=== PATIENT | female | born 1955 | race African-American/Black ===

== ENCOUNTER 2018-07-12 20:22 | Emergency (ER) | payer OTHER ==
[2018-07-12 20:28] VITALS: TEMP 97.5; BMI 30.9
--- NOTE | 2018-07-12 20:28 | PDOC ---
Rapid Medical Evaluation Time Seen by Provider: 07/12/18 20:25 Medical Evaluation: 07/12/18 20:25 Pt presents to the ED for evaluation of headache x3 days. Pt states she took Tylenol this morning for the pain, but it didn't help. Exam: no gross neuro deficits. O2 sat 85% ORA. Pt uses O2 at home Orders: labs, IV insert Pt to proceed to the ED for evaluation Discharge Disposition - Diagnosis Headache Qualifiers: Headache type: unspecified - Referrals - Patient Instructions - Post Discharge Activity
--- NOTE | 2018-07-12 21:27 | PDOC ---
Attending Attestation - HPI HPI: 07/12/18 21:40 Patient is a 63 year old female with a significant past medical history of Shortness of breath (On home O2) who presents to the ED with complaints of head pain that began x3 days ago. Patient reports experiencing right sided head pain that she states gets better with one dose of tylenol but does not completely subside. She reports taking last does this morning at 9 am, prompting her to come into the ED for further evaluation when pain did not fully subside. Denies chest pain, Sob. Denies nausea, vomiting. Denies fevers, chills. Denies dysuria, hematuria. Denies constipation, diarrhea. Denies contact with sick individuals, out of state travelling. Denies any other symptoms. Allergies: NKDA Social history: No smoking. No alcohol. No illicit drugs. Surgical history: None PMD: Dr. Hernandez - Physicial Exam PE: 07/12/18 21:40 Agree with residents Physical Exam. <Gino Toledo - Last Filed: 07/12/18 21:40> - Resident Resident Name: Yvan You - ED Attending Attestation I have performed the following: I have examined & evaluated the patient, The case was reviewed & discussed with the resident, I agree w/resident's findings & plan - Medical Decision Making 07/13/18 02:10 63-year-old female with intermittent headache for 3 days with partial resolution after taking Tylenol CT scan of the brain shows no acute abnormality Patient is pain free after Tylenol and Reglan here Patient will be discharged home to follow up with neurology <Priscila Nick - Last Filed: 07/13/18 02:11>
[2018-07-12] MEDS ORDERED: ACETAMINOPHEN 1000 MG/100 ML VIAL (NON FORMULARY) IVPB ONE (21:34)
[2018-07-12] MEDS ORDERED: METOCLOPRAMIDE HCL INJECTION 10 MG/2 ML VIAL IVPUSH ONE (21:35)
[2018-07-12] MEDS ORDERED: ACETAMINOPHEN INJECTION 100 ML IVPB ONE (21:57)
[2018-07-12] MEDS ORDERED: METOCLOPRAMIDE HCL INJECTION 10 MG/2 ML VIAL ONE (21:57)
[2018-07-12 21:58] LABS: BASO % 0.8 % (0-2.0); EOS % 1.1 % (0-4.5); HEMATOCRIT 46.8 % (32.4-45.2); HEMOGLOBIN 15.4 GM/dL (10.7-15.3); LYMPH % 32.1 % (8-40); MCH 33.1 pg (25.7-33.7); MEAN CELL VOLUME 100.4 fl (80-96); MONO % 9.8 % (3.8-10.2); NEUT % 56.2 % (42.8-82.8); PLATELET COUNT 285 K/MM3 (134-434); RBC 4.66 M/mm3 (3.60-5.2); RDW 14.5 % (11.6-15.6); WHITE BLOOD COUNT 10.8 K/mm3 (4.0-10.0)
--- NOTE | 2018-07-13 01:42 | PDOC ---
History of Present Illness - General Chief Complaint: Headache Stated Complaint: HYPERTENSION Time Seen by Provider: 07/12/18 20:25 History Source: Patient Exam Limitations: No Limitations - History of Present Illness Initial Comments: 07/13/18 01:35 Patient is a 63F with history of COPD here today complaining of headache for the past three days. Headache started insidiously and is worse on the right side of her head. No vision changes, no pro-dromal symptoms. Denies fevers, chills, neck stiffness. Patient endorses a head tremor that has been chronic for years. Patient states that tylenol 350mg helps her symptoms, but does not take the pain away. Last tylenol 9am on 07/12/18. Denies history of headaches. Past History - Past Medical History Allergies/Adverse Reactions: Allergies Allergy/AdvReac Type Severity Reaction Status Date / Time No Known Allergies Allergy Verified 07/12/18 20:27 COPD: Yes HTN: Yes - Suicide/Smoking/Psychosocial Hx Smoking History: Never smoked Review of Systems - Review of Systems Able to Perform ROS?: Yes Comments:: 07/13/18 01:39 GENERAL/CONSTITUTIONAL: No fever or chills. No weakness. HEAD, EYES, EARS, NOSE AND THROAT: No change in vision. No sore throat. CARDIOVASCULAR: No chest pain or shortness of breath RESPIRATORY: No cough, wheezing, or hemoptysis. GASTROINTESTINAL: No nausea, vomiting, diarrhea or constipation. GENITOURINARY: No dysuria, frequency, or change in urination. MUSCULOSKELETAL: No joint or muscle swelling or pain. No neck or back pain. SKIN: No rash NEUROLOGIC: +headache, no vertigo, loss of consciousness, or change in strength/ sensation. ALLERGIC/IMMUNOLOGIC: No hives or skin allergy. *Physical Exam - Vital Signs Last Vital Signs Temp Pulse Resp BP Pulse Ox 97.5 F L 94 H 18 142/75 85 L 07/12/18 20:25 07/12/18 20:25 07/12/18 20:25 07/12/18 20:25 07/12/18 20:25 - Physical Exam Comments: 07/13/18 01:40 GENERAL: Awake, alert, and fully oriented, in no acute distress HEAD: No signs of trauma, normocephalic, atraumatic, nontender along temples EYES: PERRLA, EOMI, sclera anicteric, conjunctiva clear ENT: Auricles normal inspection, hearing grossly normal, nares patent, oropharynx clear without exudates. Moist mucosa NECK: Normal ROM, supple, no lymphadenopathy, JVD, or masses LUNGS: No distress, speaks full sentences, clear to auscultation bilaterally HEART: Regular rate and rhythm, normal S1 and S2, no murmurs, rubs or gallops, peripheral pulses normal and equal bilaterally. ABDOMEN: Soft, nontender, normoactive bowel sounds. No guarding, no rebound. No masses EXTREMITIES: Normal inspection, Normal range of motion, no edema. No clubbing or cyanosis. NEUROLOGICAL: Cranial nerves II through XII grossly intact. Normal speech, normal gait, no focal sensorimotor deficits SKIN: Warm, Dry, normal turgor, no rashes or lesions noted. ED Treatment Course - LABORATORY CBC & Chemistry Diagram: 07/12/18 21:40 07/12/18 21:40 - ADDITIONAL ORDERS Additional order review: Laboratory Results 07/12/18 21:40 Sodium Cancelled Potassium Cancelled Chloride Cancelled Carbon Dioxide Cancelled Anion Gap Cancelled BUN Cancelled Creatinine Cancelled Creat Clearance w eGFR Cancelled Random Glucose Cancelled Calcium Cancelled Total Bilirubin Cancelled AST Cancelled ALT Cancelled Alkaline Phosphatase Cancelled Total Protein Cancelled Albumin Cancelled 07/12/18 21:40 RBC 4.66 MCV 100.4 H MCHC 33.0 RDW 14.5 MPV 8.0 Neutrophils % 56.2 Lymphocytes % 32.1 Monocytes % 9.8 Eosinophils % 1.1 Basophils % 0.8 - RADIOLOGY Radiology Studies Ordered: Category Date Time Status HEAD CT WITHOUT CONTRAST [CT] Stat CT Scan 07/13/18 00:42 Taken - Medications Given in the ED: ED Medications Discontinued Medications Generic Name Dose Route Start Last Admin Trade Name Freq PRN Reason Stop Dose Admin Acetaminophen 1,000 mg 07/12/18 21:34 07/12/18 22:13 Ofirmev Injection - IVPB 07/12/18 21:35 1,000 mg ONCE ONE Administration Metoclopramide HCl 10 mg 07/12/18 21:35 07/12/18 22:14 Reglan Injection - IVPUSH 07/12/18 21:36 10 mg ONCE ONE Administration Medical Decision Making - Medical Decision Making 07/13/18 01:40 Patient is 63F with history of COPD, HTN here today with headache. Triage vital signs notable for hypoxia, but on room air. On 2L O2 in low 90s. DDx includes, but is not limited to: migraine, tension headache. Temporal arteritis considered , but nontender along temples. CBC normal, cmp hemolyzed. CT head normal Pain resolved after getting tylenol and reglan. Will discharge home with neurology follow up. *DC/Admit/Observation/Transfer Diagnosis at time of Disposition: Headache Qualifiers: Headache type: unspecified - Discharge Dispostion Disposition: HOME Condition at time of disposition: Good Decision to Admit order: No - Referrals Referrals: Aryan Hernandez [Primary Care Provider] - Edgar Forrest DO [Staff Physician] - - Patient Instructions Printed Discharge Instructions: DI for Headache Additional Instructions: Please follow up with a neurologist concerning your headache and tremor. Please return if you have any new, worsening or concerning symptoms, especially increasing pain, fever, and vision changes. - Post Discharge Activity
[2018-07-13 02:45] VITALS: BP 126/70; PULSE 90
== END 2018-07-13 05:43 | disposition home or self-care (01) ==
LOC: JER 20:22
PROC: 3E033GC Introduction of Other Therapeutic Substance into Peripheral Vein, Percutaneous Approach (ICD-10-PCS; principal; 2018-07-12)
PROC: 3E033NZ Introduction of Analgesics, Hypnotics, Sedatives into Peripheral Vein, Percutaneous Approach (ICD-10-PCS; 2018-07-12)
DX: I10 Essential (primary) hypertension (principal); R51 Headache; J44.9 Chronic obstructive pulmonary disease, unspecified
CPT/HCPCS: 36415; 70450-TC; 85025; 99282-25; J0131

== ENCOUNTER 2019-03-13 13:01 | Emergency (ER) | payer OTHER ==
[2019-03-13 13:23] VITALS: BMI 28.9
--- NOTE | 2019-03-13 13:57 | PDOC ---
History of Present Illness - General Chief Complaint: Shortness of Breath Stated Complaint: cold legs Time Seen by Provider: 03/13/19 13:42 - History of Present Illness Initial Comments: 03/13/19 14:02 The patient is a 64 year old female with a history of HTN, COPD on home O2 who presents for evaluation of cough, shortness of breath, and fever. The patient reports a 1 day history of productive cough with associated shortness of breath and subjective fevers and body aches prompting her presentation to the ED for further evaluation. She denies any sick contacts and otherwise denies chills, chest pain, nausea, vomiting, abdominal pain, or changes with urination or bowel movements. Past History - Past Medical History Allergies/Adverse Reactions: Allergies Allergy/AdvReac Type Severity Reaction Status Date / Time No Known Allergies Allergy Verified 07/12/18 20:27 COPD: Yes HTN: Yes - Immunization History Immunization Up to Date: No - Psycho Social/Smoking Cessation Hx Smoking History: Unknown if ever smoked Have you smoked in the past 12 months: No Information on smoking cessation initiated: No Hx Alcohol Use: No Drug/Substance Use Hx: No Review of Systems - Review of Systems Comments:: 03/13/19 14:04 Constitutional: Fever, Fatigue, Malaise. No chills, HEENT: No Rhinorrhea, nasal congestion, visual changes Cardiovascular: No chest pain, syncope, palpitations, lightheadedness Respiratory: Cough, SOB. No Hemoptysis, Gastrointestinal: No Abdominal pain, Nausea, Vomiting, Constipation, Diarrhea, Melena Genitourinary: No Dysuria, Frequency, Urgency, Hesitancy, Hematuria, Flank pain Musculoskeletal: No Myalgia, arthralgia Skin: No rashes, itching, bruising, pallor Neurologic: No Headache, Dizziness, Numbness, Weakness, or Tingling Psychiatric: No Hallucinations. No SI or HI *Physical Exam - Vital Signs Last Vital Signs Temp Pulse Resp BP Pulse Ox 100.0 F H 84 16 127/56 L 92 L 03/13/19 13:16 03/13/19 13:16 03/13/19 13:16 03/13/19 13:16 03/13/19 13:16 - Physical Exam Comments: 03/13/19 14:05 General Appearance: Nourished. No Apparent Distress HEENT: No Pharyngeal Erythema, Tonsillar Exudate, Tonsillar Erythema Neck: No Cervical Lymphadenopathy Respiratory/Chest: Lungs Clear, Normal Breath Sounds. No Crackles, Rales, Rhonchi, Wheezing Cardiovascular: Regular Rhythm, Regular Rate. No Murmur, Gallops, Rubs Gastrointestinal/Abdominal: Normal Bowel Sounds, Soft. No Guarding, Rebound, Tenderness Musculoskeletal: No CVA Tenderness Extremity: Normal Capillary Refill Integumentary: Normal Color, Dry, Warm Neurologic: Fully Oriented, Alert, Normal Mood/Affect, Normal Response, ED Treatment Course - LABORATORY CBC & Chemistry Diagram: 03/13/19 14:20 03/13/19 14:20 - RADIOLOGY Radiology Studies Ordered: Category Date Time Status CHEST X-RAY PORTABLE* [RAD] Stat Radiology 03/13/19 13:30 Ordered Medical Decision Making - Medical Decision Making 03/13/19 14:05 The patient is a 64 year old female with a history of HTN, COPD on home O2 who presents for evaluation of cough, shortness of breath, and fever. Given the patient's history and physical exam, we will obtain a cbc, cmp, troponin, bnp, ekg, chest plain film, influenza swab to evaluate further. We will treat with iv fluids and tylenol and continue to monitor and reassess while here in the ED. 03/13/19 16:11 CBC demonstrated a wbc to 11. CMP is unremarkable. Troponin, bnp were unremarkable. Chest plain film did not demonstrate an acute process pending official radiology review. Influenza swab was negative. The patient was reassessed and reports improvement in their symptoms. We attempted to contact the patient's role player however the office was closed. We are comfortable discharging the patient home in stable condition with pulmonolgy follow up. Patient made aware of impression and plan, return precautions discussed including but not limited to worsening pain or symptoms, fevers, or signs of infection, chest pain, respiratory distress, inability to tolerate oral intake, dehydration, syncope, or neurologic changes. The patient is to follow up with PMD and specialist as recommended within 1 week, follow up information provided and the patient will call for an appointment. The patient is to take medications as instructed for duration of time and continue with supportive care , avoid triggers and precipitants. Patient is safe for outpatient follow-up. Discharge - Discharge Information Problems reviewed: Yes Clinical Impression/Diagnosis: URI (upper respiratory infection) Qualifiers: URI type: unspecified URI Qualified Code(s): J06.9 - Acute upper respiratory infection, unspecified Condition: Stable Disposition: HOME - Follow up/Referral Referrals: Dank Avalos MD [Non Staff, Medical] - - Patient Discharge Instructions Patient Printed Discharge Instructions: DI for Viral Upper Respiratory Infection -- Adult Additional Instructions: 1) Please follow-up with your primary care doctor in the next 2-3 days. Please call tomorrow to schedule a follow up appointment. If you cannot follow up with your doctor within 1 week please return to the Emergency Department for any urgent issues. 2) Your laboratory / imaging results were normal here in the ER. You are to call to schedule a follow up appointment with your role player within 2-3 days to discuss your ER visit and further management of your symptoms. Please continue to take tylenol and motrin at home to help manage your fever. 3) If you have any worsening of symptoms or any other concerns, please return to the ER immediately. Return if worsening symptoms including fevers, headache, vomiting, visual or hearing disturbances, abdominal pain, chest pain, shortness of breath, syncope, dehydration, inability to take things by mouth/vomiting, altered mental status, or worsening concerning symptoms. 4) Please continue taking your home medications as directed. Side effects may include upset stomach, abdominal pain, vomiting, or diarrhea. Do not drink alcohol with your medications. - Post Discharge Activity
[2019-03-13] MEDS ORDERED: ACETAMINOPHEN 1000 MG/100 ML VIAL (NON FORMULARY) IVPB ONE (13:58)
[2019-03-13] MEDS ORDERED: SODIUM CHLORIDE 1,000 ML IV STA (13:58)
[2019-03-13] MEDS ORDERED: ACETAMINOPHEN INJECTION 100 ML IVPB ONE (14:18)
--- NOTE | 2019-03-13 14:55 | EKG ---
Test Reason : Blood Pressure : / mmHG Vent. Rate : 089 BPM Atrial Rate : 089 BPM P-R Int : 142 ms QRS Dur : 076 ms QT Int : 384 ms P-R-T Axes : 071 034 046 degrees QTc Int : 467 ms SINUS RHYTHM WITH PREMATURE ATRIAL COMPLEXES WITH ABERRANT CONDUCTION POSSIBLE LEFT ATRIAL ENLARGEMENT LOW VOLTAGE QRS CANNOT RULE OUT ANTERIOR INFARCT , AGE UNDETERMINED ABNORMAL ECG NO PREVIOUS ECGS AVAILABLE Confirmed by MD LG, LES ([id number]) on 03/13/2019 2:54:48 PM Referred By: Confirmed By:LES CASTANON MD
--- NOTE | 2019-03-13 14:55 | PDOC ---
Attending Attestation - Resident Resident Name: Nathanael Lewis - ED Attending Attestation I have performed the following: I have examined & evaluated the patient, The case was reviewed & discussed with the resident, I agree w/resident's findings & plan - HPI HPI: 03/13/19 14:50 64-year-old female with history of COPD (? emphysema as has no reported history of nebs/steroids) on 2L home O2 presents now with progressive cough and dyspnea. normally able to ambulate to store, but over last few days increased TURCIOS without chest pain. chills last night without measured fever, no leg swelling. not actively smoking. followed at [facility] - Physicial Exam PE: 03/13/19 14:53 oral temp 100, O2 92% on 2L (baseline 84-88% per patient) Alert lying in stretcher, speaking full sentences Oropharynx clear, neck supple Heart is regular Lungs are clear without focal wheezing, decreased breath sounds, prolonged expiration No edema - Medical Decision Making 03/13/19 14:53 64-year-old female with history of COPD on home oxygen presents with increasing dyspnea over the last few days in the setting of new cough. Rule out pneumonia given low-grade temp, O2 sats appears to be at baseline per patient, viral etiology also on differential. seems less likely cardiac, but given TURCIOS will check ekg/trop. labs, ekg cxr reassess. discuss dispo with PCP/primary pulm team 03/13/19 16:11 sepsis workup wnl, wbc 11 with normal lactate and troponin, no evidence of organ injury, o2 sats remain at baseline. influenza negative, no pna on cxr. pt feels better after ivf and tylenol, ambulating in ED without hypoxia or dyspnea. recommend admission for monitoring but pt prefers d/c as she feels better. attempted call to pcp and pulmnonologist at [facility] but no service coverage. will d/c with strict return precautions, pt feels well and understands. likely mild copd/emphysema exacerbation in setting of viral URI, recommend use of o2 at all times at home until reassessed by pcp. Heart Score/ECG Review #1 ECG reviewed & interpreted by me at: 13:18 General ECG Interpretation: Sinus Rhythm, Normal Rate (89), Normal Intervals ( qtc 467, inverted P avl), No acute ischemic changes
[2019-03-13 15:04] LABS: BASO % 0.3 % (0-2.0); HEMATOCRIT 48.9 % (32.4-45.2); HEMOGLOBIN 16.1 GM/dL (10.7-15.3); MCH 33.5 pg (25.7-33.7); MCHC 32.8 g/dl (32.0-36.0); MONO % 6.4 % (3.8-10.2); NEUT % 88.3 % (42.8-82.8); PLATELET COUNT 272 K/MM3 (134-434); RDW 14.1 % (11.6-15.6); WHITE BLOOD COUNT 11.7 K/mm3 (4.0-10.0)
[2019-03-13 15:07] LABS: VENOUS PC02 39.1 mmHg (38-52)
[2019-03-13 15:08] LABS: VENOUS PO2 < 49 mmHg (28-48)
[2019-03-13 15:32] LABS: ALBUMIN 3.9 g/dl (3.4-5.0); BILIRUBIN,TOTAL 0.6 mg/dL (0.2-1); BLOOD UREA NITROGEN 9.8 mg/dL (7-18); CALCIUM 8.9 mg/dL (8.5-10.1); CREATININE 0.9 mg/dL (0.55-1.3); N-TERMINAL BNP 682.6 pg/ml (5-125); POTASSIUM 5.5 mmol/L (3.5-5.1); TOT PROT 7.7 g/dl (6.4-8.2)
[2019-03-13 16:57] VITALS: BP 107/72; PULSE 79; TEMP 99.8
[2019-03-13 17:06] LABS: EPI CELLS 3.5 /HPF (0-5/HPF); HYALINE CASTS 0 /lpf (0-8); URINE APPEARANCE CLEAR; URINE BACTERIA 74.7 /hpf (NEGATIVE); URINE BILIRUBIN NEGATIVE (NEGATIVE); URINE COLOR YELLOW; URINE GLUCOSE (UA) NEGATIVE (NEGATIVE); URINE KETONE NEGATIVE (NEGATIVE); URINE LEUK ESTERASE TRACE (NEGATIVE); URINE NITRITE NEGATIVE (NEGATIVE); URINE PROTEIN NEGATIVE (NEGATIVE); URINE RBC 1 /hpf (0-4); URINE UROBILINOGEN 0.2 mg/dL (0.2-1.0); URINE WBC 3 /hpf (0-5)
== END 2019-03-13 16:56 | disposition home or self-care (01) ==
LOC: JER 13:01
PROC: 3E033NZ Introduction of Analgesics, Hypnotics, Sedatives into Peripheral Vein, Percutaneous Approach (ICD-10-PCS; principal; 2019-03-13)
DX: J06.9 Acute upper respiratory infection, unspecified (principal); J44.9 Chronic obstructive pulmonary disease, unspecified; Z99.81 Dependence on supplemental oxygen
CPT/HCPCS: 36415; 71045-TC-FY; 80053; 81003; 82550; 82553; 82803; 83605; 83880; 84484; 85025; 87040; 87086; 87804; 93005; 93010; 99283-25; J0131; J7030

== ENCOUNTER 2019-05-30 12:30 | Emergency (ER) | payer OTHER ==
[2019-05-30 12:47] VITALS: TEMP 98.1; BMI 28.9
--- NOTE | 2019-05-30 13:29 | PDOC ---
History of Present Illness - General Chief Complaint: Lightheaded Stated Complaint: Palpitations Time Seen by Provider: 05/30/19 13:14 History Source: Patient Exam Limitations: No Limitations - History of Present Illness Initial Comments: 05/30/19 13:26 64y F with PMH of COPD (on 2L O2 as needed), HTN presenting to ED for lightheadedness and palpitations that started this AM. Pt states that her nose has been congested and she blew her nose this AM seeing streaks of blood in the mucus. She said she was brushing her teeth and spit out a ball of blood as well. She started to feel lightheaded and have palpitations. The palpitations resolved but she continued to feel lightheaded so she called an [employer] to be seen in the hospital. Pt currently denies palpitations and lightheadedness but endorses congestion. Denies fever, chills, headache, syncope, cough, chest pain , SOB, new back pain, abdominal pain, n/v/d, recent travel, recent surgeries, unilateral leg swelling, leg pain, sick contacts, body aches, trauma. PMD: Penny PMH: see hpi PSH: none Meds: lisinopril-hctz, amlodipine, inhalers Allergies: nkda Past History - Past Medical History Allergies/Adverse Reactions: Allergies Allergy/AdvReac Type Severity Reaction Status Date / Time No Known Allergies Allergy Verified 05/30/19 12:44 COPD: Yes HTN: Yes - Immunization History Immunization Up to Date: No - Psycho Social/Smoking Cessation Hx Smoking History: Former smoker Have you smoked in the past 12 months: No Information on smoking cessation initiated: No Hx Alcohol Use: No Drug/Substance Use Hx: No Review of Systems - Review of Systems Constitutional: No: Symptoms Reported HEENTM: Yes: Nose Congestion, Nose Bleeding. No: Eye Pain, Nose Pain Respiratory: No: Shortness of Breath, SOB with Exertion, SOB at Rest, Stridor, Wheezing, Productive cough, Hemoptysis Cardiac (ROS): Yes: Lightheadedness, Palpitations. No: Chest Pain, Syncope, Chest Tightness ABD/GI: No: Symptoms Reported Musculoskeletal: No: Symptoms Reported Integumentary: No: Symptoms Reported Neurological: No: Symptoms reported *Physical Exam - Vital Signs Last Vital Signs Temp Pulse Resp BP Pulse Ox 98.1 F 64 20 129/74 90 L 05/30/19 12:44 05/30/19 12:44 05/30/19 12:44 05/30/19 12:44 05/30/19 13:20 - Physical Exam General Appearance: Yes: Nourished, Appropriately Dressed. No: Apparent Distress HEENT: positive: EOMI, LJ, Normal ENT Inspection Neck: positive: Trachea midline, Supple. negative: Lymphadenopathy (R), Lymphadenopathy (L) Respiratory/Chest: positive: Lungs Clear, Normal Breath Sounds. negative: Accessory Muscle Use, Labored Respiration, Rapid RR, Crackles, Rales, Rhonchi, Stridor, Wheezing Cardiovascular: positive: Regular Rhythm, Regular Rate, S1, S2. negative: Edema , JVD, Murmur Vascular Pulses: Dorsalis-Pedis (R): 2+, Doralis-Pedis (L): 2+ Gastrointestinal/Abdominal: positive: Normal Bowel Sounds, Soft. negative: Tender Extremity: positive: Normal Capillary Refill, Pedal Edema (no pitting edema). negative: Swelling, Calf Tenderness, Erythema Integumentary: positive: Normal Color, Dry, Warm Neurologic: positive: professor of literacy II-XII NML intact, Fully Oriented, Alert, Normal Mood/ Affect, Normal Response, Motor Strength /5 ED Treatment Course - LABORATORY CBC & Chemistry Diagram: 05/30/19 13:40 05/30/19 13:40 Medical Decision Making - Medical Decision Making 05/30/19 16:06 64y F with HTN, COPD presenting to ED for lightheadedness and palpitations with nasal bleeding, symptoms now resolved. Pt states she normally saturates in the high 80s normally on RA. Vitals: normotensive, normocardic, saturating 90%. no tachypnea, no abdominal breathing. ddx includes arrhythmia (pafib, vt, svt), anemia. -cbc, cmp, trop, ekg, cxr -holter monitor ekg: nsr at 71bpm. Normal axis, normal intervals. prominent p waves suggestive of atrial enlargement. no eladia or depressions. TWI in V1-V4. new twi in v3 and v4. cxr: blunted margins, flat diaphragm. no cephalizations or cardiomegaly. low suspicion for chf. pt denying sob, chest pain, chest tightness. trop negative x2. pt has holter monitor, asymptomatic, ambulatory, no sob or chest pain. will dc home with cardiology f/u. pt agrees with plan. Discharge - Discharge Information Problems reviewed: Yes Clinical Impression/Diagnosis: Palpitations, Lightheadedness, Congestion of nasal sinus - Follow up/Referral Referrals: Stanley Horton MD [Staff Physician] - Lyndon Miranda MD [Staff Physician] - Stacie Barnard MD [Staff Physician] - Arya Su MD [Staff Physician] - Conner Correa MD [Staff Physician] - Zack Pendleton MD [Staff Physician] - Nikita Frazier MD [Staff Physician] - - Patient Discharge Instructions Patient Printed Discharge Instructions: DI for Nasal Congestion, DI for Palpitations Additional Instructions: You were seen in the ED for nasal bleeding, palpitations and lightheadedness. The bleeding is likely due to an upper respiratory infection with congestion. The palpitations could be due to an arrhythmia which is why you have a Holter monitor. I highly recommend following up with your primary care doctor this week and with a house nurse. Your primary care doctor may need to refer you to one but I have given you a few cardiologists that work here. You can use saline nasal spray to help with the congestion. Come back to the emergency room if you continue to have palpitations, have chest pain, feel short of breath or if any new or concerning symptom develops. Thank you - Post Discharge Activity
[2019-05-30 14:06] LABS: BASO % 0.4 % (0-2.0); EOS % 0.5 % (0-4.5); HEMATOCRIT 49.9 % (32.4-45.2); HEMOGLOBIN 16.6 GM/dL (10.7-15.3); LYMPH % 19.1 % (8-40); MCH 33.3 pg (25.7-33.7); MCHC 33.3 g/dl (32.0-36.0); MEAN CELL VOLUME 100.1 fl (80-96); MEAN PLT VOLUME 7.9 fl (7.5-11.1); MONO % 7.9 % (3.8-10.2); NEUT % 72.1 % (42.8-82.8); PLATELET COUNT 267 K/MM3 (134-434); RBC 4.99 M/mm3 (3.60-5.2); RDW 14.2 % (11.6-15.6); WHITE BLOOD COUNT 11.1 K/mm3 (4.0-10.0)
[2019-05-30 14:45] LABS: ALBUMIN 3.8 g/dl (3.4-5.0); ALK PHOS 113 U/L (45-117); ANION GAP 8 MMOL/L (8-16); BILIRUBIN,TOTAL 0.6 mg/dL (0.2-1); BLOOD UREA NITROGEN 18.1 mg/dL (7-18); CALCIUM 8.8 mg/dL (8.5-10.1); CHLORIDE 108 mmol/L (98-107); CO2 20 mmol/L (21-32); CREATININE 0.8 mg/dL (0.55-1.3); GLUCOSE,RANDOM 101 mg/dL (74-106); POTASSIUM 4.6 mmol/L (3.5-5.1); SGOT/AST 36 U/L (15-37); SGPT/ALT 30 U/L (13-61); SODIUM 137 mmol/L (136-145)
--- NOTE | 2019-05-30 16:10 | PDOC ---
Documentation entered by Lesley Little SCRIBE, acting as scribe for Reyes Lugo MD. Reyes Lugo MD: This documentation has been prepared by the Anabel young Nirvannie, SCRIBE, under my direction and personally reviewed by me in its entirety. I confirm that the documentation accurately reflects all work, treatment, procedures, and medical decision making performed by me. Attending Attestation - Resident Resident Name: JodeeLenora - ED Attending Attestation I have performed the following: I have examined & evaluated the patient, The case was reviewed & discussed with the resident, I agree w/resident's findings & plan, Exceptions are as noted - HPI HPI: 05/30/19 14:05 The patient is a 64 year old female, with a significant past medical history of COPD (on 2L of home O2) and hypertension, who presents to the emergency department with 1 day of lightheadedness and palpitations. As per patient, she has been congested and upon blowing her nose this morning she saw blood streaked mucus then, upon brushing her teeth she notes spitting out a ball of blood. She notes after those episodes she began to experience lightheadedness and palpitations, prompting her arrival to the ED. She denies recent chest pain or shortness of breath. Allergies: NKDA Primary Care Physician: Dr. Hernandez - Physicial Exam PE: 05/30/19 16:07 EXAMINATION CONSTITUTIONAL: Well-appearing; well-nourished; in no apparent distress HEAD: Normocephalic; atraumatic EYES: PERRL; EOM intact ENMT: External appears normal; normal oropharynx NECK: Supple; non-tender; no cervical lymphadenopathy CARD: Normal S1, S2; no murmurs, rubs, or gallops RESP: Normal chest excursion with respiration; breath sounds clear and equal bilaterally; no wheezes, rhonchi, or rales ABD: Soft, non-distended; non-tender; no palpable organomegaly, no palpable hernias EXT: Normal ROM in all four extremities; non-tender to palpation; distal pulses intact SKIN: Warm, dry, no rash NEURO: No focal neurological deficiencies. - Medical Decision Making 05/30/19 16:08 Patient is 64-year-old female with history of COPD on supplemental O2 via nasal cannula at 2 L/min as needed presents to the ER with epistaxis, hemoptysis, palpitations associated with lightheadedness and shortness of breath. In the ER , patient is awake and alert, nontoxic-appearing, afebrile, with baseline O2 sat at room air of 87%. EKG shows no evidence of acute ischemia or acute dysrhythmia. Chest x-ray reveals flattening of the both hemidiaphragms with questionable costophrenic angle blunting but no evidence of acute infiltrate or cardiomegaly. I suspect a URI as a cause of the patient's nasal congestion cough associated with the epistaxis. Will place Holter monitor for evaluation of palpitations (I suspect supraventricular tachycardia or paroxysmal A. fib); will obtain serial cardiac enzymes to rule out [place]. Given atypical presentation of symptoms, if cardiac enzymes are found to be negative, will discharge with outpatient follow-up.
[2019-05-30 17:18] VITALS: BP 130/71; PULSE 62
--- NOTE | 2019-05-31 15:14 | EKG ---
Test Reason : Blood Pressure : / mmHG Vent. Rate : 071 BPM Atrial Rate : 071 BPM P-R Int : 150 ms QRS Dur : 070 ms QT Int : 408 ms P-R-T Axes : 072 064 051 degrees QTc Int : 443 ms NORMAL SINUS RHYTHM POSSIBLE LEFT ATRIAL ENLARGEMENT ANTERIOR INFARCT (CITED ON OR BEFORE 13-MAR-2019) ABNORMAL ECG WHEN COMPARED WITH ECG OF 13-MAR-2019 13:18, ABERRANT CONDUCTION IS NO LONGER PRESENT T WAVE INVERSION NOW EVIDENT IN ANTERIOR LEADS Confirmed by WINNIE HENSLEY MD ([id number]) on 05/31/2019 3:14:15 PM Referred By: Confirmed By:WINNIE HENSLEY MD
--- NOTE | 2019-06-01 14:56 | HOL ---
Hook-up date: 2019-05-30 15:54:00 Duration: 24:00:00 Test Indications: palpitations Medications: 318139 QRS complexes 219 Ventricular ectopics which represent <1 % of total QRS comp. 65 Supraventricular ectopics which represent <1 % of total QRS comp. * Paced QRS complexs which represent % of total QRS comp. * % of Time Classified as Noise VENTRICULAR ECTOPY 215 Isolated 0 Bigeminal Cycles 2 Couplets 0 Runs 0 Beats in Runs * Beats LONGEST at * BPM at :: -- * Beats FASTEST at * BPM at :: -- SUPRAVENTRICULAR ECTOPY 58 Isolated 2 Couplets 1 Runs 3 Beats in Runs 3 Beats LONGEST at 133 BPM at 18:28:37 2019-05-30 3 Beats FASTEST at 133 BPM at 18:28:37 2019-05-30 HEART RATES 54 MIN at 18:04:50 2019-05-30 83 AVG 128 MAX at 11:48:01 2019-05-31 LONGEST RR 1.472 secs at 17:56:33 2019-05-30 1. The underlying rhythm is normal sinus at an average rate of 83 bpn (max 128, min 54) 2. Rare, single atrial premature contractions. 3. Rare, single ventricular premature contractions and rare ventricular couplets. 4. No significant pauses. 5. No diary entries. Confirmed by MAGUI LI MD ([id number]) on 06/01/2019 2:55:31 PM Referred By: MAICO SUGGS DR Overread By: MAGUI LI MD
== END 2019-05-30 18:20 | disposition home or self-care (01) ==
LOC: JER 12:30
DX: R00.2 Palpitations (principal); R42 Dizziness and giddiness; R09.81 Nasal congestion; I10 Essential (primary) hypertension; J44.9 Chronic obstructive pulmonary disease, unspecified; Z87.891 Personal history of nicotine dependence
CPT/HCPCS: 36415; 71045-TC-FY; 80053; 84484; 85025; 93005; 93010; 93225; 93226; 99285-25

== ENCOUNTER 2019-05-31 19:12 | Emergency (ER) | payer OTHER ==
[2019-05-31 19:36] VITALS: TEMP 97.9; BMI 29.1
--- NOTE | 2019-05-31 20:10 | PDOC ---
History of Present Illness - General Chief Complaint: Irregular Heart Beat Stated Complaint: REMOVE HOLTER MONITOR Time Seen by Provider: 05/31/19 19:54 - History of Present Illness Initial Comments: 05/31/19 20:32 The patient is a 64 year old HTN, COPD who presents for removal of holter monitor. The patient reports that she had a holter monitor placed 1 day ago in the ED due to palpitations and now presents for holter monitor removal. The patient denies any new complaints currently. She otherwise denies fevers, chills, SOB, chest pain, nausea, vomiting, abdominal pain, or changes with urination or bowel movements. Past History - Past Medical History Allergies/Adverse Reactions: Allergies Allergy/AdvReac Type Severity Reaction Status Date / Time No Known Allergies Allergy Verified 05/31/19 19:36 COPD: Yes HTN: Yes - Immunization History Immunization Up to Date: No - Psycho Social/Smoking Cessation Hx Smoking History: Former smoker Have you smoked in the past 12 months: No Information on smoking cessation initiated: No Hx Alcohol Use: No Drug/Substance Use Hx: No Review of Systems - Review of Systems Comments:: 05/31/19 20:33 Constitutional: No fevers, chills, fatigue, malaise HEENT: No Rhinorrhea, nasal congestion, visual changes Cardiovascular: No chest pain, syncope, palpitations, lightheadedness Respiratory: No Cough, SOB, Hemoptysis, Gastrointestinal: No Abdominal pain, Nausea, Vomiting, Constipation, Diarrhea, Melena Genitourinary: No Dysuria, Frequency, Urgency, Hesitancy, Hematuria, Flank pain Musculoskeletal: No Myalgia, arthralgia Skin: No rashes, itching, bruising, pallor Neurologic: No Headache, Dizziness, Numbness, Weakness, or Tingling Psychiatric: No Hallucinations. No SI or HI *Physical Exam - Vital Signs Last Vital Signs Temp Pulse Resp BP Pulse Ox 97.9 F 87 18 119/64 100 05/31/19 19:33 05/31/19 19:33 05/31/19 19:33 05/31/19 19:33 05/31/19 19:33 - Physical Exam 05/31/19 20:33 General Appearance: Nourished. No Apparent Distress HEENT: No Pharyngeal Erythema, Tonsillar Exudate, Tonsillar Erythema Neck: No Cervical Lymphadenopathy Respiratory/Chest: Lungs Clear, Normal Breath Sounds. No Crackles, Rales, Rhonchi, Wheezing Cardiovascular: Regular Rhythm, Regular Rate. No Murmur, Gallops, Rubs Gastrointestinal/Abdominal: Normal Bowel Sounds, Soft. No Guarding, Rebound, Tenderness Musculoskeletal: No CVA Tenderness Extremity: Normal Capillary Refill Integumentary: Normal Color, Dry, Warm Neurologic: Fully Oriented, Alert, Normal Mood/Affect, Normal Response, Medical Decision Making - Medical Decision Making 05/31/19 20:34 The patient is a 64 year old HTN, COPD who presents for removal of holter monitor. The patient appears clinically well on exam here in the ED. We removed the patient's holter monitor. We are comfortable discharging the patient home in stable condition. Patient and family made aware of impression and plan, return precautions discussed including but not limited to worsening pain or symptoms, fevers, or signs of infection, chest pain, respiratory distress, inability to tolerate oral intake, dehydration, syncope, or neurologic changes. The patient is to follow up with PMD and specialist as recommended within 1 week, follow up information provided and the patient will call for an appointment. The patient is to take medications as instructed for duration of time and continue with supportive care, avoid triggers and precipitants. Patient is safe for outpatient follow-up. Discharge - Discharge Information Problems reviewed: Yes Clinical Impression/Diagnosis: History of Holter monitoring Condition: Stable Disposition: HOME - Follow up/Referral Referrals: Stanley Horton MD [Staff Physician] - - Patient Discharge Instructions Patient Printed Discharge Instructions: DI for Arrhythmias Additional Instructions: 1) Please follow-up with your primary care doctor in the next 2-3 days. Please call tomorrow to schedule a follow up appointment. If you cannot follow up with your doctor within 1 week please return to the Emergency Department for any urgent issues. 2) Your Holter Monitor was removed here in the ED. 3) If you have any worsening of symptoms or any other concerns, please return to the ER immediately. Return if worsening symptoms including fevers, headache, vomiting, visual or hearing disturbances, abdominal pain, chest pain, shortness of breath, syncope, dehydration, inability to take things by mouth/vomiting, altered mental status, or worsening concerning symptoms. 4) Please continue taking your home medications as directed. Side effects may include upset stomach, abdominal pain, vomiting, or diarrhea. Do not drink alcohol with your medications. - Post Discharge Activity
[2019-05-31 20:33] VITALS: BP 121/73; PULSE 85
--- NOTE | 2019-05-31 23:17 | PDOC ---
Attending Attestation - Resident Resident Name: Nathanael Lewis - ED Attending Attestation I have performed the following: I have examined & evaluated the patient, The case was reviewed & discussed with the resident, I agree w/resident's findings & plan, Exceptions are as noted - HPI HPI: 05/31/19 23:15 See resident HPI - Physicial Exam PE: 05/31/19 23:15 Agree with documented exam - Medical Decision Making 05/31/19 23:15 Holter monitor placed yesterday to evaluation symptoms of palpitations, here for removal, no new or active symptoms Montior was removed, will hold until AM and return to cardiology when dept is open dc, pt instructed to adhere to previously established f/u plan
== END 2019-05-31 20:34 | disposition home or self-care (01) ==
LOC: JER 19:12
DX: Z45.09 Encounter for adjustment and management of other cardiac device (principal); R00.2 Palpitations; I10 Essential (primary) hypertension; J44.9 Chronic obstructive pulmonary disease, unspecified; Z87.891 Personal history of nicotine dependence
CPT/HCPCS: 99282-25